=== PATIENT | male | born 1985 | race Caucasian/White ===

== ENCOUNTER → 2019-06-06 15:10 | Outpatient (CLI) | payer BC, SELFPAY ==
--- NOTE | ~2019-06-06 | CT_ITS ---
EXAMINATION: CT brain wo/w con DATE: 06/06/2019 15:52 INDICATION: Headache, right otalgia. Dizziness. Right neck pain. TECHNIQUE: Computed tomography (CT) of the head was performed without and subsequently with 100 cc Om nipaque 350 intravenous contrast. The mA was adjusted according to patient size. Iterative reconstruc tion technique was employed. Exam dose: 1199.14 mGy-cm total exam DLP. COMPARISON: None FINDINGS: No intracranial mass lesion or hemorrhage or cerebrovascular accident is detected. No midli ne shift or mass effect. Normal ventricular size. Normal mixon-white matter differentiation. No subdur al or epidural hematoma is detected. No fracture or bone destruction of the cranial vault. The included paranasal sinuses and mastoid air cells are normally developed and aerated. IMPRESSION: No significant abnormality Reviewed, dictated and finalized at [facility]. Reviewed, dictated and finalized at [facility]. GER AMBULATORY IMPRESSION: No significant abnormality
--- NOTE | ~2019-06-06 | CT_ITS ---
. EXAMINATION: CT soft tissue neck wo/w con DATE: 06/06/2019 15:53 INDICATION: Right neck and ear pain. TECHNIQUE: Computed tomography (CT) of the neck was performed without and with 75 mL Omnipaque-350 in travenous contrast. Automated exposure control and iterative reconstruction technique were employed. The dose-length product was 867.32 mGy-cm. COMPARISON: None FINDINGS: There are no pathologically enlarged lymph nodes. The parotid glands are normal. The cervic al carotid arteries are normal. The oropharynx is normal. The paranasal sinuses are clear. The mastoi d air cells are normal. There is mild cervical spondylosis. IMPRESSION: 1. Mild cervical spondylosis. Reviewed, dictated and finalized at location [facility]. RVENTIONAL PHYSIATRIST
== END ==
DX: R51 Headache (principal); M54.2 Cervicalgia; H92.09 Otalgia, unspecified ear; M47.892 Other spondylosis, cervical region
CPT/HCPCS: 70470; 70492; Q9967

== ENCOUNTER → 2019-06-26 15:43 | Outpatient (CLI) | payer BC, SELFPAY ==
--- NOTE | ~2019-06-26 | MR_ITS ---
EXAMINATION: MR brain/brain stem wo/w con DATE: 06/26/2019 16:44 INDICATION: Pineal cyst. Frontal headache. TECHNIQUE: Magnetic resonance imaging (MRI) of the brain and brainstem was performed without and with 20 mL MultiHance intravenous contrast. Sequences included sagittal and axial T1-weighted FSE, axial diffusion-weighted FS EPI, axial T2*-weighted GRE, axial T2-weighted FLAIR Propeller, and axial T2-we ighted Propeller. Postcontrast sequences included axial, sagittal, and coronal T1-weighted FSE. Appar ent diffusion coefficient (ADC) maps were created. COMPARISON: Head CT 06/06/2019 FINDINGS: There is a 17 x 9 x 11 mm pineal cyst. No significant mass effect. There is no intracranial hemorrhage or acute ischemic infarct. The ventricles are normal in size. The orbits are normal. The paranasal sinuses are clear. The mastoid air cells are normal. IMPRESSION: 1. Pineal cyst. Reviewed, dictated and finalized at location [facility]. 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 Pineal cyst.
[2019-06-26 16:12] LABS: Blood Urea Nitrogen 15 mg/dL (8-26); Estimated Glomerular Filt Rate > 60
== END ==
DX: E34.8 Other specified endocrine disorders (principal)
CPT/HCPCS: 70553; A9577

== ENCOUNTER → 2020-12-27 09:18 | Outpatient (CLI) | payer BC, SELFPAY ==
--- NOTE | ~2020-12-27 | MR_ITS ---
EXAMINATION: MR lumbar spine wo con DATE: 12/27/2020 10:04 INDICATION: Discitis, unspecified, lumbar region. Low back pain. TECHNIQUE: Magnetic resonance imaging (MRI) of the lumbar spine was performed without intravenous con trast. Sequences included sagittal T2-weighted FSE, sagittal T2-weighted FS FSE, sagittal T1-weighted FSE, and axial T2-weighted FSE. COMPARISON: Lumbar spine MRI 12/31/2015 FINDINGS: Bone alignment is normal. There is a chronic left L5 pars defect. There are Schmorl's nodes at most levels. There is mild chronic anterior wedging of T12-L2 vertebral bodies. There is mildly d ecreased disc height at L2-L3 and moderately decreased disc height at L4-L5 with endplate remodeling. The distal spinal cord signal intensity is normal. The conus medullaris is at L1. The following disc levels are specifically discussed: L1-L2: The disc does not extend beyond the endplate margin. There is moderate right and mild left fac et joint osteoarthritis. There is no neural foraminal stenosis. There is no central canal stenosis. L2-L3: The disc is bulging. There is mild bilateral facet joint osteoarthritis. There is no neural fo raminal stenosis. There is mild central canal stenosis. L3-L4: There is a right foraminal protrusion. There is mild bilateral facet joint osteoarthritis. The re is mild right neural foraminal stenosis. There is no central canal stenosis. L4-L5: The disc is bulging with superimposed central extrusion. There is mild bilateral facet joint o steoarthritis. There is mild bilateral neural foraminal stenosis. There is mild central canal stenosi s. L5-S1: The disc does not extend beyond the endplate margin. There is mild right facet joint osteoarth ritis. There is no neural foraminal stenosis. There is no central canal stenosis. IMPRESSION: 1. No evidence of discitis. 2. Moderate lumbar spondylosis, stable from 12/31/2015. 3. Chronic left L5 pars defect. Reviewed, dictated and finalized at [facility].
== END ==
DX: M46.46 Discitis, unspecified, lumbar region (principal); M47.896 Other spondylosis, lumbar region
CPT/HCPCS: 72148

== ENCOUNTER → 2022-04-14 11:11 | Outpatient (CLI) | payer BC, SELFPAY ==
--- NOTE | ~2022-04-14 | MR_ITS ---
EXAMINATION: MR lumbar spine wo con DATE: 04/14/2022 12:17 INDICATION: Lumbar radiculopathy. Low back pain. TECHNIQUE: Magnetic resonance imaging (MRI) of the lumbar spine was performed without intravenous con trast. Sequences included sagittal T2-weighted FSE, sagittal T2-weighted FS FSE, sagittal T1-weighted FSE, and axial T2-weighted FSE. COMPARISON: Lumbar spine MRI 12/27/2020 FINDINGS: There is 3 mm retrolisthesis of L1 on L2, L2 on L3, and L3 on L4. There are Schmorl's nodes at most levels. There is mild chronic anterior wedging of T12 vertebral body. L1 and L2 are limbus v ertebrae. There is a chronic left L5 pars defect. There is mildly decreased disc height from T12-L1 t hrough L3-L4 and moderately decreased disc height at L4-L5. The distal spinal cord signal intensity i s normal. The conus medullaris is at L1. The following disc levels are specifically discussed: L1-L2: The disc is bulging. There is mild bilateral facet joint osteoarthritis. There is mild bilater al neural foraminal stenosis. There is mild central canal stenosis. L2-L3: The disc is bulging. There is mild left facet joint osteoarthritis. There is mild bilateral ne ural foraminal stenosis. There is mild central canal stenosis. L3-L4: The disc is bulging. There is mild bilateral facet joint osteoarthritis. There is mild bilater al neural foraminal stenosis. There is no central canal stenosis. L4-L5: The disc is bulging with superimposed central extrusion. There is mild bilateral facet joint o steoarthritis. There is mild bilateral neural foraminal stenosis. There is mild central canal stenosi s. L5-S1: The disc does not extend beyond the endplate margin. There is mild bilateral facet joint osteo arthritis. There is no neural foraminal stenosis. There is no central canal stenosis. IMPRESSION: 1. Moderate lumbar spondylosis, stable from 12/27/2020. 2. Chronic left L5 pars defect. Reviewed, dictated and finalized at location [facility]. 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
== END ==
DX: M47.27 Other spondylosis with radiculopathy, lumbosacral region (principal)
CPT/HCPCS: 72148

== ENCOUNTER → 2022-04-30 10:57 | Outpatient (CLI) | payer BC, SELFPAY ==
--- NOTE | ~2022-04-30 | MR_ITS ---
MRI of the brain Clinical History: Mass Technique: Axial and sagittal T1-weighted images were acquired. These were followed by axial T2-weigh mady, diffusion weighted, gradient, and FLAIR images. Following intravenous administration of 20 cc Mu ltiHance gadolinium, T1-weighted fat-sat imaging was performed in the axial, coronal, and sagittal pl anes. COMPARISON: 06/26/2019 Findings: There is no acute infarct or intracranial hemorrhage. Stable nonenhancing pineal cyst. No o ther mass lesion identified. Ventricles and subarachnoid spaces are otherwise unremarkable. Orbits are unremarkable. Paranasal sin uses and mastoid air cells are clear. Major intracranial flow voids are intact. Sagittal midline structures are intact. No abnormal postcontrast enhancement identified. IMPRESSION: Stable pineal cyst. No other significant findings. Reviewed, dictated and finalized at [facility]. 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
== END ==
DX: R90.89 Other abnormal findings on diagnostic imaging of central nervous system (principal); E34.8 Other specified endocrine disorders; G93.0 Cerebral cysts
CPT/HCPCS: 70553; A9577

== ENCOUNTER 2024-06-30 08:09 | Outpatient (CLI) | payer BC, SELFPAY | END 2024-06-30 08:10 | disposition home or self-care (01) | PROVIDERS: PCP Neurological Surgery; Visit Provider Neurological Surgery | DX: M43.06 Spondylolysis, lumbar region (principal); M43.02 Spondylolysis, cervical region; M79.602 Pain in left arm | CPT/HCPCS: 72141; 72148 ==